=== PATIENT | male | born 2000 | race Caucasian/White ===

== ENCOUNTER 2022-05-02 08:35 | Outpatient (CLI) | payer OTHER, SELFPAY ==
--- NOTE | 2022-05-13 16:09 | WPDHOMESLEEP ---
Sleep Study - Home Unattended Date of Study: 05/02/22 Ordering Provider: Maria E Garcia MD Interpreting Provider: Lorena Westfall, DO Home Sleep Study Type: Watch PAT Height: 1.7 m Weight: 71.214 kg Body Mass Index: 24.5 Neck Circumference (inches): 15.5 [place]: 14 Reason for Sleep Study Daytime hypersomnia Sleep History The patient is a 22-year-old male with anxiety and depressions that had a sleep study ordered by his primary care for evaluation of sleep apnea. The patient occasionally awakens from sleep short of breath. He occasionally awakens at night with heartburn, belching or cough. He occasionally snores but it is rarely loudly enough that others complain. He frequently has trouble sleeping when he has a cold. He rarely wakes up gasping for air throughout the night. He rarely has breathing problems at night observed by himself or others. He frequently sweats excessively at night. He denies having heart palpitations or irregular heartbeats during the night. He frequently falls asleep during the day but never while driving. He denies sleep paralysis and cataplexy. He occasionally has trouble at school or work due to sleepiness. He frequently experiences vivid dreamlike scenes upon awakening or falling asleep. He denies feeling afraid of going to sleep. He occasionally has nightmares constantly remembers his dreams. He frequently has thoughts racing through his mind. He frequently feels sad, depressed and anxious. He occasionally has muscular tension. He occasionally notices parts of his body jerk. He frequently kicks during the night. He denies having crawling and aching feelings in his legs. He rarely has leg pain during the night. He rarely grinds his teeth during sleep and occasionally awakens with morning jaw pain. He occasionally is bothered by pain during the day but rarely awakened by pain during the night. He frequently wakes up feeling stiff in the morning. He frequently wakes up with sore or achy muscles. He frequently wakes up with pain in the neck, spine or other joints. He goes to bed between 10:00 p.m. to 2:00 a.m. on both weekdays and weekends. It takes him 1-3 hours to fall asleep. He does not typically wake up throughout the night. He wakes up between 6:29 a.m. on both weekdays and weekends. He typically gets 6-10 hours of sleep per night. He will stay in bed for 30 minutes after waking up in the morning. He currently lives with his fiancee. He does not consume any caffeinated beverages within 2 hours of bedtime. He does not engage in physical exercise before bedtime. He will watch television before falling asleep. He will take naps in the afternoon or the evening but they are not refreshing. He drinks 2-3 caffeinated beverages per day. He denies tobacco, alcohol and recreational drug use. PMFSH Past Medical History Medical History Depression with anxiety Surgical History Surgical History No history of previous surgery Family History Family History Grandparent Diabetes mellitus Family history of obesity Family history of muscular dystrophy, Onset Age: 70 Hypertension Family history of malignant neoplasm Family history of Parkinson's disease Family history of chronic obstructive pulmonary disease Family history of dementia Family history of congestive heart failure, Onset Age: 77 Mother Family history of mental disorder Sibling Family history of attention deficit hyperactivity disorder (ADHD) Social History Social History Social History: Milo is single, he lives with his parents. Smoking status: Never smoker Alcohol intake: never Medications Home Medications Medication Instructions Recorded Confirmed Typ
[2022-05-13 16:14] VITALS: BMI 24.5
== END 2022-05-03 10:54 | disposition home or self-care (01) ==
PROVIDERS: PCP Family Medicine; Visit Provider Family Medicine
DX: G47.10 Hypersomnia, unspecified (principal); R40.0 Somnolence
CPT/HCPCS: 95800

== ENCOUNTER 2023-11-20 17:23 | Emergency (ER) | payer OTHER, SELFPAY ==
[2023-11-20 17:34] VITALS: BP 133/81; PULSE 78; RESP 18; TEMP 36.6; O2SAT 99
--- NOTE | 2023-11-20 17:44 | ED.DIZZY ---
HPI - Dizziness General Chief Complaint: Dizziness Stated Complaint: Dizziness History of Present Illness HPI Narrative: Patient is a 23-year-old male, past medical history significant for anxiety, presents to [facility] with intermittent episodes of dizziness with a sensation of spinning since last Friday ( 6 days ago ), worse when rotating his head, when bending over, when moving from lying to sitting position and when scrolling through objects on his phone. He denies recent URI symptoms, he has not experienced any fevers or chills, he has no vision changes otherwise, and he denies head injuries. He has not attempted any modifying factors. He denies any additional complaints Related Data Allergies Allergy/AdvReac Type Severity Reaction Status Date / Time No Known Allergies Allergy Verified 11/20/23 17:34 Review of Systems Neurologic: Comments: refer to [facility] Past Medical History Medical History Depression with anxiety Surgical History Surgical History No history of previous surgery Family History Family History Grandparent Diabetes mellitus Family history of obesity Family history of muscular dystrophy, Onset Age: 70 Hypertension Family history of malignant neoplasm Family history of Parkinson's disease Family history of chronic obstructive pulmonary disease Family history of dementia Family history of congestive heart failure, Onset Age: 77 Mother Family history of mental disorder Sibling Family history of attention deficit hyperactivity disorder (ADHD) Social History Social History Social History: Milo is single, he lives with his parents. Smoking status: Never smoker Alcohol intake: never Exam Const: General: healthy appearing, no acute distress and alert Nutritional Appearance: well nourished Orientation/consciousness: patient oriented x3 Limitations: no limitations HENMT: Head: normal to inspection Face and sinus: normal facial exam and sinuses nontender Mouth: Yes Normal oral and palatal mucosa present and Yes lip normal Teeth and gingiva: dentition normal Throat: posterior oropharynx normal and uvula midline Other: right TM is occluded by cerumen present. The EAC is unremarkable otherwise. The left TM has a serous pattern present with retraction of the TM. This TM is intact and translucent. No mastoid tenderness to palpation bilaterally, no fluctuance noted Eyes: Conjunctivae: conjunctivae normal Pupils: Equal, round and reactive pupils present EOM: EOMs intact bilaterally Neck: Neck: normal visual inspection, no lymphadenopathy and no meningeal signs Chest: Chest palpation & inspection: normal inspection of the chest Resp: Effort & Inspection: normal respiratory effort Auscultation: clear to auscultation bilaterally Cardio: Rate: regular rate Rhythm: regular rhythm Skin: General skin exam: normal color Rashes: no rashes Wounds: no wounds Neuro: General: patient oriented x3, moves all extremities, no meningeal signs, no focal motor deficits and CN's II-XI intact bilaterally Cranial nerves: Yes Nystagmus not present Speech: normal speech Gait exam (Neuro): Normal gait present Extrem: General: normal to inspection, no clubbing, cyanosis or edema and no pedal edema Psych: Mental Status: mental status grossly normal Affect: normal affect Course Course Emergency Course: patient's examination and history of presenting illness are consistent with BPPV, in mild serous effusion is noted to the left TM. Plan to treat with oral steroids, meclizine, pushing fluids and rest at home. He is encouraged to change positions slowly and use caution when driving. He will follow-up with his PCP in 2-3 days if symptoms are
== END 2023-11-20 17:52 | disposition home or self-care (01) ==
PROVIDERS: Emergency Provider Nurse Practitioner Family; PCP Nurse Practitioner Family
DX: H81.12 Benign paroxysmal vertigo, left ear (principal); H65.02 Acute serous otitis media, left ear
CPT/HCPCS: 99213; G0463

== ENCOUNTER 2023-12-10 16:11 | Emergency (ER) | payer OTHER, SELFPAY ==
[2023-12-10 16:21] VITALS: BP 119/73; PULSE 79; RESP 16; TEMP 36.6; O2SAT 100
--- NOTE | 2023-12-10 16:45 | ED.GENADULT ---
HPI - General Adult General Chief complaint: Extremity Injury, Lower Stated complaint: left foot heel pain Time Seen by Provider: 12/10/23 16:35 Source: patient, RN notes reviewed and old records reviewed Mode of arrival: ambulatory Limitations: no limitations History of Present Illness HPI narrative: 23 year old male who presents to [facility] with complaints of left foot pain for the past 1 week with no known injury.Patient reports that he is on his feet alot at work and he has been having left lateral foot pain near heel area. Patient reports that it hurts to apply full pressure on his foot, no noted redness or swelling noted to his left foot dorsal or plantar region. Patient has not taken any OTC medications for his pain MD complaint: left foot pain Onset (ago): week(s) (1) Location: left and lower extremity (foot) Severity scale (1-10): 3 Exacerbating factors: other (applying full pressure to his left foot) Treatments prior to arrival: none Related Data Allergies Allergy/AdvReac Type Severity Reaction Status Date / Time No Known Allergies Allergy Verified 11/20/23 17:34 Review of Systems Review of Systems: CONSTITUTIONAL: Denies fever, chills, or sweats. EYES: Denies visual changes, redness, or discharge. ENT: Denies rhinorrhea, congestion, sore throat, or otalgia. CARDIOVASCULAR: Denies chest pain, palpitations, or edema. RESPIRATORY: Denies cough or dyspnea. GASTROINTESTINAL: Denies abdominal pain, nausea, vomiting, or diarrhea. GENITOURINARY: Denies dysuria or hematuria. SKIN: Denies rash or itching. MUSCULOSKELETAL: Denies back pain,positive for left lateral foot pain near heel for 1 week duration, , or myalgia. NEUROLOGIC: Denies headache, numbness, or weakness. PSYCHIATRIC: Denies anxiety or depression. All systems reviewed & are unremarkable except as noted in HPI and below PMFSH Past Medical History Medical History Depression with anxiety Surgical History Surgical History No history of previous surgery Family History Family History Grandparent Diabetes mellitus Family history of obesity Family history of muscular dystrophy, Onset Age: 70 Hypertension Family history of malignant neoplasm Family history of Parkinson's disease Family history of chronic obstructive pulmonary disease Family history of dementia Family history of congestive heart failure, Onset Age: 77 Mother Family history of mental disorder Sibling Family history of attention deficit hyperactivity disorder (ADHD) Social History Social History (Updated 12/12/23 @ 12:00 by Fernanda Peguero NP) Smoking status: Never smoker Alcohol intake: never Substance use type: does not use Additional living arrangements comments: with fianc? Comments At time of signature, agree with nursing past medical, surgical, social and family history. There is no relevant family history pertinent to the presenting complaint Exam Narrative: GENERAL: Well-appearing, well-nourished, and in no acute distress. HEAD: Normocephalic, atraumatic. EYES: PERRLA and EOMI. ENT: Nares clear, no rhinorrhea or epistaxis. Mucous membranes moist. NECK: Supple.no lymphadenopathy CHEST: Clear to auscultation. No respiratory distress.SAO2 on room air HEART: Regular rate and rhythm. No murmur heard. Normal peripheral pulses. ABDOMEN: Soft, nontender, nondistended, normal active bowel sounds. EXTREMITIES: Normal range of motion. No edema.reports pain to the lateral left foot near heel region increases with ambulation and when applies full pressure on foot, no redness bruising or trauma to foot, strong pedal pulse present, no posterior heel pain or swelling or any radiation of pain in his lower leg. SKIN: Warm, dry, no rash. NEURO: No focal deficits. Alert and oriented x3. Course Cour
== END 2023-12-10 17:02 | disposition home or self-care (01) ==
PROVIDERS: Emergency Provider Registered Nurse; PCP Nurse Practitioner Family
DX: M72.2 Plantar fascial fibromatosis (principal)
CPT/HCPCS: 99213; G0463

== ENCOUNTER 2024-04-06 13:05 | Emergency (ER) | payer OTHER, SELFPAY ==
[2024-04-06 13:39] VITALS: BP 111/71; PULSE 88; RESP 16; TEMP 36.9; O2SAT 97
--- NOTE | 2024-04-06 14:40 | ED.GENADULT ---
HPI - General Adult General Chief complaint: Extremity Problem,Nontraumatic Stated complaint: bump on middle finger right hand Time Seen by Provider: 04/06/24 14:19 Source: patient, RN notes reviewed and old records reviewed Mode of arrival: ambulatory Limitations: no limitations History of Present Illness HPI narrative: 23-year-old male to Express Care with complaint of Single lesion to distal palmar area of right middle finger for 3 weeks. Patient endorses some tenderness with pressure. Patient denies injury, foreign body, allergies. patient has not attempted to treat at home. Patient states that he bought a wart removal kit [id number] but was hesitant to use it. Patient states he wanted to rule out infection prior to starting treatment at home. Related Data Home Medications ?Medication ?Instructions ?Recorded ?Confirmed ?Last Taken ?Type No Home Medications 04/06/24 04/06/24 Unknown History Allergies Allergy/AdvReac Type Severity Reaction Status Date / Time No Known Allergies Allergy Verified 04/06/24 13:38 Review of Systems Review of Systems: All systems reviewed & are unremarkable except as noted in HPI and below Constitutional: Constitutional: Reports no additional constitutional complaints Eyes: Eyes: Reports no additional eye complaints ENT: Reports system reviewed and no additional complaints, except as documented Cardiovascular: Cardiovascular: Reports no additional cardiovascular complaints, Denies chest pain and Denies dyspnea Respiratory: Respiratory: Reports no additional respiratory complaints, Denies cough and Denies dyspnea Musculoskeletal: Musculoskeletal: Reports no additional musculoskeletal complaints Integumentary/Breasts: Skin/Breast: Reports new lesions Neurologic: Reports system reviewed and no additional complaints, except as documented Psychiatric: Psychiatric: Reports no additional psychiatric complaints [facility] Past Medical History Medical History Depression with anxiety Surgical History Surgical History No history of previous surgery Family History Family History Grandparent Diabetes mellitus Family history of obesity Family history of muscular dystrophy, Onset Age: 70 Hypertension Family history of malignant neoplasm Family history of Parkinson's disease Family history of chronic obstructive pulmonary disease Family history of dementia Family history of congestive heart failure, Onset Age: 77 Mother Family history of mental disorder Sibling Family history of attention deficit hyperactivity disorder (ADHD) Social History Social History Smoking status: Never smoker Alcohol intake: never Substance use type: does not use Additional living arrangements comments: with fianc? Comments At the time of my signature, I reviewed and agree with the nursing past medical, surgical, social, and family history. There is no relevant family history pertinent to the patient complaint. Exam Const: General: cooperative, healthy appearing, comfortable, no acute distress, alert and well nourished Nutritional Appearance: well nourished Orientation/consciousness: patient oriented x3 Limitations: no limitations HENMT: Head: normal to inspection Ears: external ears normal Face/Nose/Sinus: Normal external nose present, Normal nares present, normal facial exam, No erythema and No edema Face and sinus: normal facial exam, no erythema and no edema Mouth: Yes Normal oral and palatal mucosa present Eyes: General: appearance normal, both eyes and all related structures Neck: Neck: normal visual inspection, full ROM and no meningeal signs Chest: Chest palpation & inspection: normal inspection of the chest Resp: Effort & Inspection: normal respiratory effort and able to speak in complete sentences Cardio: Jugular venous distension: no JVD Rate: regular rate Back/Spine/Pelvis: Cervical Spine: cervical ROM normal Skin: General skin exam: normal color, turgor normal and lesion Lesions: lesion noted nodule right palmar 3rd finger size (.25cm), borders well-defined, color flesh-colored, consistency firm and morphology dome-shaped; nontender Neuro: General: patient oriented x3, gait normal, moves all extremities and no meningeal signs Speech: normal speech Gait exam (Neuro): Normal gait present Extrem: General: normal to inspection, full ROM and capillary refill normal Psych: Appearance: grossly normal and well kempt Course Course Emergency Course: Some parts of this dictation were generated by voice recognition software and may contain typographical and/or grammatical inaccuracies. Level of Care: Express Care Visit Vital Signs Vital signs: Vital Signs Temperature 36.9 C 04/06/24 13:39 Pulse Rate 88 04/06/24 13:39 Respiratory Rate 16 04/06/24 13:39 Blood Pressure 111/71 04/06/24 13:39 Pulse Oximetry 97 04/06/24 13:39 Oxygen Delivery Room Air 04/06/24 13:39 Temperature 36.9 C 04/06/24 13:39 Pulse Rate 88 04/06/24 13:39 Respiratory Rate 16 04/06/24 13:39 Blood Pressure 111/71 04/06/24 13:39 Pulse Oximetry 97 04/06/24 13:39 Oxygen Delivery Room Air 04/06/24 13:39 reviewed Medical Decision Making MDM Narrative Medical decision making narrative: 23-year-old male to Express Care with complaint of Single lesion to distal palmar area of right middle finger for 3 weeks. Patient endorses some tenderness with pressure. Patient denies injury, foreign body, allergies. patient has not attempted to treat at home. Patient states that he bought a wart removal kit [id number] but was hesitant to use it. Patient states he wanted to rule out infection prior to starting treatment at home. Patient is sitting comfortably in exam room nontoxic in appearance. On exam, 0.25 cm dome shaped, flush colored lesion to distal palmar aspect of 3rd digit right hand. Consistent with wart. Patient appropriate for outpatient treatment and follow-up. Discharge instructions reviewed with patient, as well as provided in writing per nursing staff. The instructions also include specific and strict return/GO TO THE ER as well as f/u information. All questions have been answered, and the patient deny any further questions with discharge and discharge plan. Some parts of this dictation were generated by voice recognition software and may contain typographical and/or grammatical inaccuracies. Differential Diagnosis Differential Diagnosis: Abscess, insect bite/ sting, contact dermatitis, wart Vital Signs Vital Signs: Vital Signs Temperature 36.9 C 04/06/24 13:39 Pulse Rate 88 04/06/24 13:39 Respiratory Rate 16 04/06/24 13:39 Blood Pressure 111/71 04/06/24 13:39 Pulse Oximetry 97 04/06/24 13:39 Oxygen Delivery Room Air 04/06/24 13:39 Temperature 36.9 C 04/06/24 13:39 Pulse Rate 88 04/06/24 13:39 Respiratory Rate 16 04/06/24 13:39 Blood Pressure 111/71 04/06/24 13:39 Pulse Oximetry 97 04/06/24 13:39 Oxygen Delivery Room Air 04/06/24 13:39 Discharge Plan Discharge Clinical Impression: Wart Patient Disposition: Home, Self-Care Condition: Stable Instructions: Common Wart (ED) Additional Instructions: Salicylic acid 26% to 28.5%: (over the counter wart remover) Soak wart in warm water for 5 minutes. Dry area thoroughly. Apply to entire wart surface, allow to dry, and then apply a second time. Avoid contact with surrounding skin. Continue therapy once or twice daily. Resolution may be expected after 4 to 6 weeks; some warts may take longer to remove for continued issues please follow-up with your primary care provider Patient Language: Croatian Prescriptions: No Action No Home Medications Follow-up/Referrals: Elizabeth De Paz NP [Primary Care Provider] -
--- NOTE | 2024-04-06 14:47 | ED_ITS ---
HPI - General Adult General Chief complaint: Extremity Problem,Nontraumatic Stated complaint: bump on middle finger right hand Time Seen by Provider: 04/06/24 14:19 Source: patient, RN notes reviewed and old records reviewed Mode of arrival: ambulatory Limitations: no limitations Related Data Home Medications ?Medication ?Instructions ?Recorded ?Confirmed ?Last Taken ?Type No Home Medications 04/06/24 04/06/24 Unknown History Allergies Allergy/AdvReac Type Severity Reaction Status Date / Time No Known Allergies Allergy Verified 04/06/24 13:38 [facility] Past Medical History Medical History Depression with anxiety Surgical History Surgical History No history of previous surgery Family History Family History Grandparent Diabetes mellitus Family history of obesity Family history of muscular dystrophy, Onset Age: 70 Hypertension Family history of malignant neoplasm Family history of Parkinson's disease Family history of chronic obstructive pulmonary disease Family history of dementia Family history of congestive heart failure, Onset Age: 77 Mother Family history of mental disorder Sibling Family history of attention deficit hyperactivity disorder (ADHD) Social History Social History Smoking status: Never smoker Alcohol intake: never Substance use type: does not use Additional living arrangements comments: with fianc? Course Vital Signs Vital signs: Vital Signs Temperature 36.9 C 04/06/24 13:39 Pulse Rate 88 04/06/24 13:39 Respiratory Rate 16 04/06/24 13:39 Blood Pressure 111/71 04/06/24 13:39 Pulse Oximetry 97 04/06/24 13:39 Oxygen Delivery Room Air 04/06/24 13:39 Temperature 36.9 C 04/06/24 13:39 Pulse Rate 88 04/06/24 13:39 Respiratory Rate 16 04/06/24 13:39 Blood Pressure 111/71 04/06/24 13:39 Pulse Oximetry 97 04/06/24 13:39 Oxygen Delivery Room Air 04/06/24 13:39 Medical Decision Making Vital Signs Vital Signs: Vital Signs Temperature 36.9 C 04/06/24 13:39 Pulse Rate 88 04/06/24 13:39 Respiratory Rate 16 04/06/24 13:39 Blood Pressure 111/71 04/06/24 13:39 Pulse Oximetry 97 04/06/24 13:39 Oxygen Delivery Room Air 04/06/24 13:39 Temperature 36.9 C 04/06/24 13:39 Pulse Rate 88 04/06/24 13:39 Respiratory Rate 16 04/06/24 13:39 Blood Pressure 111/71 04/06/24 13:39 Pulse Oximetry 97 04/06/24 13:39 Oxygen Delivery Room Air 04/06/24 13:39 Discharge Plan Discharge Clinical Impression: Wart Patient Disposition: Home, Self-Care Condition: Stable Instructions: Common Wart (ED) Additional Instructions: Salicylic acid 26% to 28.5%: (over the counter wart remover) Soak wart in warm water for 5 minutes. Dry area thoroughly. Apply to entire wart surface, allow to dry, and then apply a second time. Avoid contact with surrounding skin. Continue therapy once or twice daily. Resolution may be expected after 4 to 6 weeks; some warts may take longer to remove for continued issues please follow-up with your primary care provider Patient Language: British Prescriptions: No Action No Home Medications Follow-up/Referrals: Elizabeth De Paz NP [Primary Care Provider] -
== END 2024-04-06 14:58 | disposition home or self-care (01) ==
PROVIDERS: Emergency Provider Nurse Practitioner Family; PCP Nurse Practitioner Family
DX: B07.9 Viral wart, unspecified (principal)
CPT/HCPCS: 99211; G0463

== ENCOUNTER 2024-05-07 16:07 | Emergency (ER) | payer OTHER, SELFPAY ==
--- NOTE | ~2024-05-07 | XR_ITS ---
EXAMINATION: SACRUM/COCCYX DATE: 05/07/2024 16:44 INDICATION: Tail bone pain and low back pain after fall TECHNIQUE: Three views sacrum/coccyx FINDINGS: No prior studies for comparison. There is no displaced fracture of the sacrum. The coccyx demonstrates overall normal morphology with out acute angulation. IMPRESSION: 1. No acute displaced osseous abnormality of the sacrum. Suspicion for occult or nondisplaced sacral fracture can either be evaluated with CT or MRI. 2. Grossly normal morphology to the coccyx without acute angulation. However, due to the wide range of normal variation of the coccyx, acute injury would be best evaluated by clinical examination and patient's symptoms. Reviewed, dictated and finalized at location B. 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
--- NOTE | ~2024-05-07 | XR_ITS ---
XR hip RT min 2V 05/07/2024 16:44 INDICATION: Right hip pain after fall PROCEDURE: 3 views right hip COMPARISON: No prior studies for comparison. FINDINGS: Fracture, dislocation or subluxation is not identified. The soft tissues appear within norm al limits. No foreign bodies are identified. IMPRESSION: 1: NO ACUTE BONE OR JOINT ABNORMALITY IDENTIFIED. Reviewed, dictated and finalized at location B. LE WORKER
[2024-05-07 16:13] VITALS: BP 130/74; PULSE 89; RESP 20; TEMP 36.6; O2SAT 100
--- NOTE | 2024-05-07 16:29 | ED.LOWEXIN ---
HPI - Extremity Injury (Lower) General Chief Complaint: Extremity Injury, Lower Stated Complaint: Fall Injury/Right Hip and Tailbone Time Seen by Provider: 05/07/24 16:19 Source: patient and RN notes reviewed Mode of arrival: ambulatory Limitations: no limitations History of Present Illness HPI Narrative: Patient presents today complaining of right hip and coccygeal pain after falling on ice last night. He does report some radiation of pain occasionally to the knee and some very intermittent tingling to the right foot. Denies numbness, loss of bowel or bladder control. Currently rates his pain 5/10 and has been taking Tylenol and ibuprofen with mild relief. Related Data Home Medications ?Medication ?Instructions ?Recorded ?Confirmed ?Last Taken ?Type venlafaxine 75 mg tablet mg 05/07/24 Unknown History Allergies Allergy/AdvReac Type Severity Reaction Status Date / Time No Known Allergies Allergy Verified 05/07/24 16:18 Review of Systems Review of Systems: CONSTITUTIONAL: Denies body aches, fever, chills, or sweats. EYES: Denies visual changes, redness, or discharge. ENT: Denies rhinorrhea, congestion, sore throat, or otalgia. CARDIOVASCULAR: Denies chest pain, palpitations, or edema. RESPIRATORY: Denies cough or dyspnea. GASTROINTESTINAL: Denies abdominal pain, nausea, vomiting, or diarrhea. GENITOURINARY: Denies dysuria or hematuria. SKIN: Denies rash, itching, or wounds. MUSCULOSKELETAL: + low back and right hip pain NEUROLOGIC: Denies headache, numbness, or weakness.+ tingling of right PSYCH: Denies depression or anxiety. [facility] Past Medical History Medical History Depression with anxiety Surgical History Surgical History No history of previous surgery Family History Family History Grandparent Diabetes mellitus Family history of obesity Family history of muscular dystrophy, Onset Age: 70 Hypertension Family history of malignant neoplasm Family history of Parkinson's disease Family history of chronic obstructive pulmonary disease Family history of dementia Family history of congestive heart failure, Onset Age: 77 Mother Family history of mental disorder Sibling Family history of attention deficit hyperactivity disorder (ADHD) Social History Social History (Reviewed 05/07/24 @ 16:31 by Lynnette Leonard, [facility] [place], ) Smoking status: Never smoker Alcohol intake: never Substance use type: does not use Additional living arrangements comments: with fianc? Comments At time of signature, I have reviewed and agree with nursing past medical, surgical, social and family history unless otherwise noted. Please see nursing chart for further information. There is no relevant family history pertinent to the presenting complaint Exam Narrative: GENERAL: Well-appearing, well-nourished, and in no acute distress. HEAD: Normocephalic, atraumatic. EYES: EOMI. No redness or drainage. Conjunctivae normal. ENT: Mucous membranes pink and moist. NECK: Normal AROM. CHEST: No respiratory distress. MUSCULOSKELETAL: No bony tenderness of the spine. Right lower lumbar paraspinal muscle tenderness that extends to the sacrum and right SI joint and the right lateral hip. Distal sensation intact bilaterally. Saddle sensation intact. 5/5 strength in BLE. EXTREMITIES: Normal range of motion. No edema. SKIN: Warm, dry, no rash. Capillary refill normal. Normal skin turgor. NEURO: No focal deficits. Alert and oriented x3. Gait steady. PSYCH: Normal affect. No signs of depression or anxiety. Course Course Level of Care: Express Care Visit Vital Signs Vital signs: Vital Signs Temperature 97.9 F 05/07/24 16:13 Pulse Rate 89 05/07/24 16:13 Respiratory Rate 20 05/07/24 16:13 Blood Pressure 130/74 05/07/24 16:13 Pulse Oximetry 100 05/07/24 16:13 Oxygen Delivery Room Air 05/07/24 16:13 Temperature 97.9 F 05/07/24 16:13 Pulse Rate 89 05/07/24 16:13 Respiratory Rate 20 05/07/24 16:13 Blood Pressure 130/74 05/07/24 16:13 Pulse Oximetry 100 05/07/24 16:13 Oxygen Delivery Room Air 05/07/24 16:13 Reviewed MDM - Extremity Injury (Lower) MDM Narrative Medical decision making narrative: X-rays are negative for acute fracture. Patient declines prescription NSAID. Discussed follow-up pain 1-2 weeks if symptoms are not improving. Anticipatory guidance given. Differential Diagnosis Differential diagnosis: Likely other (Low back strain, hip contusion, coccygeal fracture) Imaging Data Radiologist's impression: ITS Impressions Hip X-Ray 05/07/24 16:52 IMPRESSION: 1: NO ACUTE BONE OR JOINT ABNORMALITY IDENTIFIED. Sacrum and Coccyx X-Ray 05/07/24 16:53 IMPRESSION: 1. No acute displaced osseous abnormality of the sacrum. Suspicion for occult or nondisplaced sacral fracture can either be evaluated with CT or MRI. 2. Grossly normal morphology to the coccyx without acute angulation. However, due to the wide range of normal variation of the coccyx, acute injury would be best evaluated by clinical examination and patient's symptoms. Critical Care Time Critical Care Time Critical Care Time: No Discharge Plan Discharge Clinical Impression: Fall due to ice or snow, Contusion of hip, right, Coccygeal contusion Patient Disposition: Home, Self-Care Condition: Stable Instructions: Contusion in Adults (ED) Additional Instructions: Your x-rays are negative today. Apply ice to your hip to help with any inflammation. Taking anti-inflammatories such as Aleve or ibuprofen. Follow-up with your PCP in 1-2 weeks if symptoms are not improving. Please go to the ER immediately if you develop numbness or tingling in your legs or genitalia, loss of bowel or bladder control. Your blood pressure was elevated above 120/80 today at Urgent Care. This puts you above the threshold for follow up. Please schedule a followup visit with your personal physician as soon as possible, for further evaluation and treatment. Even blood pressure exceeding 120/80 may indicate pre-hypertension. Patient Language: Libyan Prescriptions: No Action venlafaxine 75 mg tablet Follow-up/Referrals: Elizabeth De Paz NP [Primary Care Provider] - Time of Disposition: 17:05
== END 2024-05-07 17:10 | disposition home or self-care (01) ==
PROVIDERS: Emergency Provider Nurse Practitioner; PCP Nurse Practitioner Family
DX: S70.01XA Contusion of right hip, initial encounter (principal); S30.0XXA Contusion of lower back and pelvis, initial encounter; W00.0XXA Fall on same level due to ice and snow, initial encounter
CPT/HCPCS: 72220; 73502; 99214; G0463

== ENCOUNTER 2024-07-04 19:11 | Emergency (ER) | payer OTHER, SELFPAY ==
--- OUTSIDE RECORDS SUMMARY | 2024-07-04 19:13 | XMS_ITS | Clinical Summary ---
Author Organization [facility] Address [address] [place] [id number] Care Team Providers Care Demolitionist Name Role Phone Unavailable Primary Care Provider Unavailabl e Social History Tobacco Use Types Packs/Day Years Used Date Smoking Tobacco: Never Assessed Sex and Gender Information Value Date Recorded Sex Assigned at Not on file Legal Sex Male 11:58 PM CDT Gender Identity Not on file Sexual Orientation Not on file Plan of Treatment Health Maintenance Due Date Last Done Comments Hepatitis C Virus (HCV) Screening 1998 Human Papillomavirus (HPV) Immunization (1 - Male 3-dose series) 2013 Influenza Immunization (#1) 2023 SARS-COV-2 Immunization ( season) 2023 08/20/2020, 07/24/2020 Respiratory Syncytial Virus (RSV) Immunization (Adult) (1 - 1-dose 75+ series) 2073 Hepatitis B Immunization Completed 999, 1998, 1998 Pneumococcal Immunization Combined Aged Out 09/02/2000 No longer eligible based on patient's age to complete this topic DTaP/Tdap/Td Immunization Discontinued 2009, 11/15/2003, 07/24/1999, Additional history exists Meningococcal Immunization (ACWY) Aged Out 12/18/2009 No longer eligible based on patient's age to complete this topic TdaP Immunization Completed 12/18/2009 Rotavirus Immunization Aged Out No lo nger eligible based on patient's age to complete this topic Insurance [employer] on file
[2024-07-04 19:15] VITALS: BP 130/81; PULSE 80; RESP 20; TEMP 36.6; O2SAT 100
--- NOTE | 2024-07-04 19:33 | ED.GENADULT ---
HPI - General Adult General Chief complaint: Urogenital-Male Stated complaint: pain in left testicle Source: patient Mode of arrival: ambulatory Limitations: no limitations History of Present Illness HPI narrative: Patient presents for evaluation of left-sided testicular pain. Symptom onset 2 hours ago. He states that pain is dull and becomes sharp when he stands up. Pain is rated 6/10 in severity. No history of similar symptoms. He denies any urinary symptoms. He had some nausea without vomiting. No fever or chills. He is sexually active with 1 male partner. He denies urethral discharge. Related Data Home Medications ?Medication ?Instructions ?Recorded ?Confirmed ?Last Taken ?Type No Home Medications 07/04/24 Unknown History Allergies Allergy/AdvReac Type Severity Reaction Status Date / Time No Known Allergies Allergy Verified 07/04/24 19:19 Review of Systems Review of Systems: CONSTITUTIONAL: Denies fever, chills, or sweats. EYES: Denies visual changes, redness, or discharge. ENT: Denies rhinorrhea, congestion, sore throat, or otalgia. CARDIOVASCULAR: Denies chest pain, palpitations, or edema. RESPIRATORY: Denies cough or dyspnea. GASTROINTESTINAL: Denies abdominal pain, nausea, vomiting, or diarrhea. GENITOURINARY: Reports left-sided testicular pain. Denies dysuria, urinary frequency, hesitancy, urgency. Denies urethral discharge SKIN: Denies rash or itching. MUSCULOSKELETAL: Denies back pain, joint pain, or myalgia. NEUROLOGIC: Denies headache, numbness, dizziness, or weakness. PSYCHIATRIC: Denies anxiety or depression. [facility] Past Medical History Medical History Depression with anxiety Surgical History Surgical History No history of previous surgery Family History Family History Grandparent Diabetes mellitus Family history of obesity Family history of muscular dystrophy, Onset Age: 70 Hypertension Family history of malignant neoplasm Family history of Parkinson's disease Family history of chronic obstructive pulmonary disease Family history of dementia Family history of congestive heart failure, Onset Age: 77 Mother Family history of mental disorder Sibling Family history of attention deficit hyperactivity disorder (ADHD) Social History Social History Smoking status: Never smoker Alcohol intake: never Substance use type: does not use Additional living arrangements comments: with fianc? Exam Narrative: GENERAL: Well-appearing, well-nourished, and in no acute distress. HEAD: Normocephalic, atraumatic. EYES: PERRLA and EOMI. ENT: Nares clear, no rhinorrhea or epistaxis. Mucous membranes moist. Oropharynx without tonsillar hypertrophy exudate or other lesions. Bilateral TMs pearly ravi nonbulging NECK: Supple. No adenopathy or masses. No carotid bruits or JVD CHEST: Clear to auscultation. No respiratory distress. No wheezes rales or rhonchi HEART: Regular rate and rhythm. No murmur heard. Normal peripheral pulses. ABDOMEN: Soft, nontender, nondistended, normal active bowel sounds. GENITAL: No external genital lesions. No inguinal lymphadenopathy. Left testicle is tender palpation. I do not appreciate gross scrotal swelling. EXTREMITIES: Normal range of motion. No edema. SKIN: Warm, dry, no rash. NEURO: No focal deficits. Alert and oriented x3. PSYCH: Normal mood and affect. Course Course Emergency Course: This is a 24-year-old male who presented for evaluation of left-sided testicular pain. In the differential would be testicular torsion. I recommended he be transferred to the hospital for ultrasound. He is agreeable to this plan. [facility] is his facility of choice. I contacted the emergency department at [facility] and spoke with nurse, Lucía. She indicates that Dr Fraser will accept pt for transfer there. Patient transferred via private vehicle. Level of Care: Express Care Visit Vital Signs Vital signs: Vital Signs Temperature 36.6 C 07/04/24 19:15 Pulse Rate 80 07/04/24 19:15 Respiratory Rate 20 07/04/24 19:15 Blood Pressure 130/81 07/04/24 19:15 Pulse Oximetry 100 07/04/24 19:15 Oxygen Delivery Room Air 07/04/24 19:15 Temperature 36.6 C 07/04/24 19:15 Pulse Rate 80 07/04/24 19:15 Respiratory Rate 20 07/04/24 19:15 Blood Pressure 130/81 07/04/24 19:15 Pulse Oximetry 100 07/04/24 19:15 Oxygen Delivery Room Air 07/04/24 19:15 Medical Decision Making Vital Signs Vital Signs: Vital Signs Temperature 36.6 C 07/04/24 19:15 Pulse Rate 80 07/04/24 19:15 Respiratory Rate 20 07/04/24 19:15 Blood Pressure 130/81 07/04/24 19:15 Pulse Oximetry 100 07/04/24 19:15 Oxygen Delivery Room Air 07/04/24 19:15 Temperature 36.6 C 07/04/24 19:15 Pulse Rate 80 07/04/24 19:15 Respiratory Rate 20 07/04/24 19:15 Blood Pressure 130/81 07/04/24 19:15 Pulse Oximetry 100 07/04/24 19:15 Oxygen Delivery Room Air 07/04/24 19:15 Discharge Plan Discharge Clinical Impression: Left testicular pain Patient Disposition: Acute Care Hospital Condition: Stable Patient Language: Mongolian Prescriptions: No Action No Home Medications Follow-up/Referrals: Elizabeth De Paz NP [Primary Care Provider] - Time of Disposition: 19:33
== END 2024-07-04 19:41 | disposition short-term general hospital (02) ==
PROVIDERS: Emergency Provider Nurse Practitioner; PCP Nurse Practitioner Family
DX: N50.812 Left testicular pain (principal)
CPT/HCPCS: 99212; G0463